=== PATIENT | female | born 1960 | race Hispanic/Latino ===

== ENCOUNTER → 2018-05-16 | Day surgery (SDC) | payer OTHER ==
[~2018-05-16] MED LIST: ALENDRONATE SOD70 MG PO; ASPIRIN81 MG PO; CALCIUM 600 +1 EAC2; CITALOPRAM HBR20 MG PO; CYCLOBENZAPRINE10 MG PO; GABAPENTIN300 MG PO; GLUCOSAMINE &1 EAC1 PO; KETAMINE HCL INJ 50 MG/ML 10 ML VIAL ONE; LIDOCAINE HCL 2% LOCAL INJ 5 ML SDV VIAL INJ ONE; MELOXICAM7.5 MG PO; MIDAZOLAM HCL 2 MG/2 ML VIAL ONE; PANTOPRAZOLE SO40 MG PO; PROPOFOL IV EMULSION 10 MG/ML 50 ML VIAL ONE; ULTRAM50 MG PO
--- OUTSIDE RECORDS SUMMARY | 2018-05-16 07:23 | XMS REPORT ---
Author Author [facility] Address Unknown Phone Unavailable Care Team Providers Care Area Director Name Role Phone SALBADOR ORNELAS Unavailable Unavailable Problems This patient has no known problems. Allergies, Adverse Reactions, Alerts This patient has no known allergies or adverse reactions. Medications This patient has no known medications. Results Test Description Test Time Test Comments Text Results Atomic Results Result Comments BONE DXA DUAL ENERGY [place] [address] Patient Name: SYLVIA OCONNOR MR #: [id number] : 1960 Age/Sex: 56/F Req #: [id number] [facility] Physician: Ordered by: SALBADOR ORNELAS MD Report #: [id number] [facility] Room/Bed: Procedure: [id number] DX/BONE DXA DUAL ENERGY Exam Date: Exam Time: REPORT STATUS: Signed EXAM: DXA BONE DENSITY INDICATIONS: Not provided. COMPARISON: None. FINDINGS: Proximal left femur bone mineral density (BMD) (g/cm2): 0.880 Femur T-score (standard deviation relative to young adult mean BMD): -0.6 Femur Z-score (standard deviation relative to age-matched control group): 0.3 Lumbar bone mineral density (BMD) (g/cm2): 1.045 Lumbar T-score (standard deviation relative to young adult mean BMD): 0.0 Lumbar Z-score (standard deviation relative to age-matched control group): 1.2 Change since prior exam (%): Femur: -3.1% Spine: 0.9% Change since oldest prior exam (%): Femur: 0.3% Spine: 3.0% CONCLUSION: 1. Bone mineral density in the left femur is classified as normal. Fracture risk is not increased. 2. Bone mineral density in the spine is classified as normal. Fracture risk is not increased. World Health Organization Classification: *The Z-score is provided for informational purposes. The T- score is preferable for clinical decisions. When comparing exams, a change of >4% is considered statistically significant. SUGGESTED RECOMMENDATIONS: Normal T Osteopenia: Consideration should be given to use of calcium supplementation, daily multiple vitamins and adequate exercise, as preventive measures against osteoporosis, if clinically indicated. Osteoporosis T Severe Osteoporosis: In addition to the above, consideration should be given to medical therapy against osteoporosis, if clinically indicated. Carmen Cooper D.O. Dictated by: Carmen Cooper D.O. on 07/12/2017 at 15:16 Electronically approved by: Carmen Cooper D.O. on 07/12/2017 at 15:16 Dictated By: CARMEN COOPER DO 1516 Transcribed By: JESUS MANUEL on 07/12/17 1516 COPY TO: SALBADOR ORNELAS MD MAMMOGRAPHY DIGITAL SCR [place] [address] Patient Name: SYLVIA OCONNOR MR #: [id number] : 1960 Age/Sex: 56/F Req #: [id number] Physician: Ordered by: SALBADOR ORNELAS MD Report #: [id number] Location: [facility] Room/Bed: Procedure: [id number] MG/MAMMOGRAPHY DIGITAL SCR BILAT Exam Date: 07/12/17 Exam Time: 1320 REPORT STATUS: Signed #[id number] - [id number] #BILATERAL DIGITAL SCREENING MAMMOGRAM WITH CAD: 07/12/2017 CLINICAL: Routine screening. Comparison is made to exams dated: 07/04/2015 mammogram, 06/29/2014 mammogram and 04/04/2013 mammogram - [facility]. Current study contains 4 films. The tissue of both breasts is heterogeneously dense. This may lower the sensitivity of mammography. Current study was also evaluated with a Computer Aided Detection (CAD) system. There are benign vascular calcifications and calcifications in both breasts. No significant masses, calcifications, or other findings are seen in either breast. There has been no significant interval change. IMPRESSION: BENIGN There is no mammographic evidence of malignancy. A 1 year screening mammogram is recommende d. The patient will be notified by letter of the results. Carmen mckeon/michael:07/28/2017 08:04:25 Audio Visual Technician: Mikki LOPEZ(R)(M), [facility] letter sent: Compared to Prior B9 Mammogram BI-RADS: 2 Benign Dictated By: CARMEN COOPER DO 0804 Transcribed By: MICHAEL on 07/28/17 0804 COPY TO: SALBADOR ORNELAS MD
[2018-05-16 11:10] VITALS: BP 141/75
--- NOTE | 2018-05-16 13:22 | Operative Report ---
DATE OF PROCEDURE: May 16, 2018 REFERRING PHYSICIAN: Dr. Salbador Pastrana. PROCEDURES PERFORMED: 1. Esophagogastroduodenoscopy with esophageal dilatation and biopsies. 2. Colonoscopy with polypectomy and biopsies. INDICATIONS FOR ESOPHAGOGASTRODUODENOSCOPY: Dysphagia, history of antral intestinal metaplasia. INDICATIONS FOR COLONOSCOPY: History of colon polyps. MEDICATION: Patient was done under MAC. Please see anesthesiologist's note. PROCEDURE: With patient in the left lateral decubitus position, the flexible fiberoptic Olympus gastroscope was introduced into the esophagus under direct visualization without any difficulty. There was some patchy erythema noted in the distal esophagus. A mild stricture was noted at the GE junction, and that was dilated to size 52-Anguillan Jackson. The scope was then advanced with ease into the stomach, and the mucosa overlying the antrum revealed some patchy erythema and low-grade edema, and biopsies were obtained and sent to stain for H. pylori. The mucosa overlying the body was somewhat atrophic, and biopsies were obtained to rule out atrophic gastritis. Pylorus was of normal contour and shape, was intubated with ease, and the scope was advanced all the way to the 2nd portion of the duodenum. The scope was withdrawn slowly. Mucosa overlying the proximal 2nd portion and the duodenal bulb appeared to be within normal limits. The scope was then withdrawn back into the stomach and retroflexed, and the mucosa overlying the fundus and the cardia appeared to be within normal limits. The scope was then straightened out. The stomach was decompressed. The scope was subsequently withdrawn. Patient tolerated the procedure well. IMPRESSION: 1. Distal esophagitis. 2. Esophagus dilated to a size 52-Anguillan Jackson. 3. Gastritis, antrum, biopsied. Biopsies sent to stain for H. pylori. 4. Rule out atrophic gastritis, body. PLAN: Follow up histology. Continue Protonix 40 mg 1 p.o. q.a.m. a.c. Patient was then turned around and after adequate lubrication of the anal canal, a flexible fiberoptic Olympus colonoscope was inserted into the rectum with ease and advanced all the way to the cecum. A minute polyp was hot biopsied from the cecum. The ileocecal valve was intubated, and the scope was advanced into the terminal ileum. A focal inflammatory area was noted, and that was biopsied. The scope was then withdrawn back into the colon. It was then withdrawn slowly, and the mucosa overlying the ascending appeared to be within normal limits other than for a small single diverticulum. The transverse, descending, sigmoid and rectum appeared to be within normal limits. The scope was then retroflexed into the distal rectum and small internal hemorrhoids were noted, none of which was actively bleeding. The scope was then straightened out. It was subsequently withdrawn. Patient tolerated the procedure well. IMPRESSION: 1. Cecal polyp hot biopsied. 2. Single diverticulum, ascending colon. 3. Internal hemorrhoids, none actively bleeding. PLAN: Follow up histology. Patient might benefit from a followup colonoscopy in 3 to 5 years. Initiate high-fiber low-fat diet. Job#: [id number] EV cc:SALBADOR PASTRANA MD
== END | disposition home or self-care (01) ==
LOC: OR 07:21
PROVIDERS: ATTEND Internal Medicine Gastroenterology
DX: K21.0 Gastro-esophageal reflux disease with esophagitis (principal); K22.2 Esophageal obstruction; K29.40 Chronic atrophic gastritis without bleeding; K31.9 Disease of stomach and duodenum, unspecified; Z12.11 Encounter for screening for malignant neoplasm of colon; K63.5 Polyp of colon; K57.30 Diverticulosis of large intestine without perforation or abscess without bleeding; K64.8 Other hemorrhoids; F41.8 Other specified anxiety disorders; F31.9 Bipolar disorder, unspecified; M19.90 Unspecified osteoarthritis, unspecified site; M54.9 Dorsalgia, unspecified; Z79.82 Long term (current) use of aspirin; Z79.891 Long term (current) use of opiate analgesic
CPT/HCPCS: 43239; 43450; 45380; 45384; 93005; J2001; J2250; 45378

== ENCOUNTER 2018-05-28 03:18 | Emergency (ER) | payer OTHER ==
[~2018-05-28] VITALS: Ht 157.5 cm; Wt 79.8 kg
[~2018-05-28 03:18] MED LIST changes: -KETAMINE HCL INJ 50 MG/ML 10 ML VIAL ONE; -LIDOCAINE HCL 2% LOCAL INJ 5 ML SDV VIAL INJ ONE; -MIDAZOLAM HCL 2 MG/2 ML VIAL ONE; -PROPOFOL IV EMULSION 10 MG/ML 50 ML VIAL ONE
== END 2018-05-28 04:05 | disposition home or self-care (01) ==
LOC: ER 03:18
DX: M79.672 Pain in left foot (principal); M79.671 Pain in right foot; M72.2 Plantar fascial fibromatosis
CPT/HCPCS: 99282

== ENCOUNTER → 2019-10-09 | Outpatient (CLI) | payer OTHER ==
--- NOTE | 2019-10-09 14:12 | Diagnostic Imaging Report ---
EXAMINATION: HAND 3+ VIEWS LEFT INDICATION: Finger pain COMPARISON: None FINDINGS: No acute fracture or dislocation. Alignment appears anatomic. The soft tissues appear radiographically unremarkable. No substantial degenerative changes. IMPRESSION: No acute osseous injury. Signed by: Kyrie Suresh MD on 10/09/2019 2:09 PM
--- NOTE | 2019-10-10 09:44 | Diagnostic Imaging Report ---
EXAMINATION: Bone mineral density study. COMPARISON: Bone mineral density studies 07/12/2017 and 06/29/2014. HISTORY: Osteoporosis DISCUSSION: Evaluation of the left hip and lumbar spine was performed utilizing a DEXA Hologic bone densitometer. The study is technically adequate. The left hip total bone mineral density is 0.874 gm/cm2, the T-score is -0.7, and the Z-score is 0.3. The left hip femoral neck bone mineral density is 0.764 gm/cm2, the T-score is -0.9, and the Z-score is 0.3. The lumbar spine total bone mineral density is 1.053 gm/cm2, the T-score is 0.1, and the Z-score is 1.5. IMPRESSION: 1. WHO classification of normal bone mineral density for the left hip with no increased risk of fracture. Interval BMD change of +1.9% when compared to baseline and -0.7% when compared to previous 2. WHO classification of normal bone mineral density for the lumbar spine with no increased risk of fracture. Interval BMD change of +10.9% when compared to baseline and +0.8% when compared to previous The patient's fracture risk is compared to an age-matched control. Medical evaluation for secondary causes of low bone bone mineral density may be appropriate. Correlate clinically for the necessity and timing of the next bone mineral density study. National Osteoporosis Foundation recommendations: Initiate therapy to reduce fracture risk in postmenopausal women with -BMD t-scores below -2.0 by central DXA with no risk factors -BMD t-scores below -1.5 by central DXA with one or more risk factors (first deg relative with hip fracture, prior personal fracture, low body weight, smoking) -A prior vertebral or hip fracture AACE (Clinical Endocrinology) recommends treating the following: Postmenopausal women who have osteoporosis as diagnosed by fragility fractures or t scores -2.5 or below Postmenopausal women who have risk factors (including fh of hip fracture, low body weight, smoking, risk of falling, high bone turnover, advancing age) and borderline low BMD T scores of -1.5 or below Adequate intake of calcium (at least 1200mg/day) and vitamin D (400-800 IU/day). Regular weight bearing and muscle - strengthening exercises Avoid smoking and excessive alcohol Signed by: Dr. Jericho Plaza M.D. on 10/10/2019 9:40 AM
== END ==
LOC: DX 11:36
PROVIDERS: ATTEND Family Medicine
DX: M81.0 Age-related osteoporosis without current pathological fracture (principal); M79.645 Pain in left finger(s)
CPT/HCPCS: 77080

== ENCOUNTER 2019-10-22 03:23 | Emergency (ER) | payer OTHER ==
[~2019-10-22] VITALS: Ht 162.6 cm; Wt 77.6 kg
[2019-10-22] MEDS ORDERED: HYDROCODONE/APAP 5MG-325MG TAB PO ONE (03:45)
--- NOTE | 2019-10-22 05:25 | Diagnostic Imaging Report ---
X-ray right fifth toe 2 views HISTORY: Pain. COMPARISON: None available. FINDINGS: Bones: No acute displaced fracture. Osseous alignment is within normal limits. Joints: The joint spaces are well-maintained. Soft tissues: The soft tissues appear unremarkable. IMPRESSION: No acute radiographic osseous abnormality. Signed by: Jimbo Vasquez DO on 10/22/2019 5:21 AM
== END 2019-10-22 04:30 | disposition home or self-care (01) ==
LOC: ER 03:23
DX: S90.121A Contusion of right lesser toe(s) without damage to nail, initial encounter (principal); S97.121A Crushing injury of right lesser toe(s), initial encounter; W50.0XXA Accidental hit or strike by another person, initial encounter; Y92.019 Unspecified place in single-family (private) house as the place of occurrence of the external cause; Z82.49 Family history of ischemic heart disease and other diseases of the circulatory system
CPT/HCPCS: 99283

== ENCOUNTER 2023-01-03 01:40 | Emergency (ER) | payer BC ==
[~2023-01-03] VITALS: Ht 162.6 cm; Wt 77.6 kg
[2023-01-03] MEDS ORDERED: ONDANSETRON HCL INJ 2MG/ML 2ML 2 MG/ML VIAL IV STA (01:42)
[2023-01-03] MEDS ORDERED: DICYCLOMINE HCL 20 MG/2 ML VIAL IM ONE (01:45)
[2023-01-03] MEDS ORDERED: Morphine 2mg Syringe 2 MG/ML SYR IV ONE (01:45)
[2023-01-03] MEDS ORDERED: SODIUM CHLORIDE 0.9% 1000ML 1,000 ML ONE (01:55)
[2023-01-03] MEDS ORDERED: SODIUM CHLORIDE 0.9% 1000ML 1,000 ML IV ONE (02:15)
[2023-01-03 02:18] LABS: BASOPHILS % 0.2 % (0.0-1.0); EOSINOPHILS # (AUTO) 0.1 (0.0-0.4); EOSINOPHILS % 0.9 % (0.0-6.0); HEMOGLOBIN 12.1 g/dL (12.0-16.0); LYMPHOCYTES # (AUTO) 1.6 (1.0-3.2); MEAN CORPUSCULAR HEMOGLOBIN 28.1 pg (28-32); MEAN CORPUSCULAR HGB CONC 32.7 g/dL (31-35); MONOCYTES # (AUTO) 0.4 (0.2-0.8); MONOCYTES % 4.2 % (4.4-11.3); NEUTROPHILS # (AUTO) 6.8 (2.1-6.9); NEUTROPHILS % 76.5 % (38.7-80.0); PLATELET COUNT 244 x10e3/uL (140-360); RED CELL DISTRIBUTION WIDTH 12.7 % (11.7-14.4)
[2023-01-03 02:28] LABS: LIPASE 35 U/L (8-78)
[2023-01-03 02:30] LABS: ALBUMIN/GLOBULIN RATIO 1.1 (0.8-2.0); ANION GAP 14.1 mmol/L (8-16); CREATININE, SERUM 0.81 mg/dL (0.57-1.11); POTASSIUM 4.1 mmol/L (3.5-5.1)
[2023-01-03 02:39] LABS: CLARITY,URINE CLEAR (CLEAR); COLOR,URINE YELLOW (YELLOW); KETONES,URINE TRACE (NEGATIVE); LEUKOCYTE ESTERASE ,URINE NEGATIVE (NEGATIVE); NITRITE,URINE NEGATIVE (NEGATIVE); PROTEIN,URINE DIPSTICK NEGATIVE (NEGATIVE); URINE UROBILINOGEN 1 mg/dL (0.2 - 1)
[2023-01-03 02:56] LABS: BACTERIA,URINE MANY /HPF; EPITHELIAL CELLS,URINE FEW /LPF; RBC,URINE 0-5 /HPF (0-5); WBC,URINE (MAN) 0-5 /HPF (0-5)
[2023-01-03 02:57] LABS: AMORPHOUS SEDIMENT,URINE MANY (FEW)
[2023-01-03] MEDS ORDERED: KETOROLAC TROMETHAMINE 30 MG/ML VIAL IV ONE (03:45)
[2023-01-03] MEDS ORDERED: ONDANSETRON ODT4 MG PO (04:50)
[2023-01-03] MEDS ORDERED: DICYCLOMINE HCL20 MG PO (04:50)
[2023-01-03 05:07] VITALS: BP 160/73; PULSE 72; RESP 14; TEMP 98.2; O2SAT 98
== END 2023-01-03 05:16 | disposition home or self-care (01) ==
LOC: ER 01:45
DX: R10.13 Epigastric pain (principal); R10.11 Right upper quadrant pain; K80.20 Calculus of gallbladder without cholecystitis without obstruction; R11.2 Nausea with vomiting, unspecified; M81.8 Other osteoporosis without current pathological fracture
CPT/HCPCS: 36415; 71045; 76705; 80053; 81001; 83690; 84484; 85025; 93005; 99284; C9113; J0500; J1885; J2270; J2405; J7030

== ENCOUNTER 2023-01-04 16:38 | Inpatient (IN) | payer BC ==
[~2023-01-04] VITALS: Ht 162.6 cm; Wt 77.6 kg
[~2023-01-04 16:38] MED LIST changes: +DICYCLOMINE HCL20 MG PO; +ONDANSETRON ODT4 MG PO
[2023-01-04] MEDS ORDERED: SODIUM CHLORIDE 0.9% 1000ML 1,000 ML IV SCH (17:00)
[2023-01-04] MEDS ORDERED: CEFTRIAXONE 1 GM VIAL ONE (17:04)
[2023-01-04 17:11] LABS: BASOPHILS % 0.2 % (0.0-1.0); EOSINOPHILS % 0.1 % (0.0-6.0); HEMATOCRIT 39.7 % (34.2-44.1); HEMOGLOBIN 13.2 g/dL (12.0-16.0); LYMPHOCYTES # (AUTO) 1.1 (1.0-3.2); LYMPHOCYTES % 6.4 % (18.0-39.1); MEAN CORPUSCULAR HEMOGLOBIN 28.7 pg (28-32); MEAN CORPUSCULAR HGB CONC 33.2 g/dL (31-35); MEAN CORPUSCULAR VOLUME 86.3 fL (81-99); MONOCYTES % 5.6 % (4.4-11.3); NEUTROPHILS # (AUTO) 14.9 (2.1-6.9); NEUTROPHILS % 87.2 % (38.7-80.0); PLATELET COUNT 231 x10e3/uL (140-360); RED CELL DISTRIBUTION WIDTH 13.1 % (11.7-14.4)
[2023-01-04] MEDS ORDERED: ONDANSETRON HCL INJ 2MG/ML 2ML 2 MG/ML VIAL IV STA (17:13)
[2023-01-04] MEDS ORDERED: Morphine 4mg INJECTION 4 MG/ML INJ IV ONE (17:15)
[2023-01-04 17:28] LABS: ALBUMIN 3.5 g/dL (3.5-5.0); ALBUMIN/GLOBULIN RATIO 0.8 (0.8-2.0); CREATININE, SERUM 0.88 mg/dL (0.57-1.11)
[2023-01-04] MEDS: METRONIDAZOLE 750MG/NS 150ML 150 ML IV SCH (17:31)
[2023-01-04] MEDS ORDERED: KETOROLAC TROMETHAMINE 30 MG/ML VIAL IV STA (17:44)
[2023-01-04] MEDS ORDERED: LACTATED RINGER'S 1,000 ML INJ ONE (18:00)
[2023-01-04 18:50] VITALS: PULSE 115; RESP 20; O2SAT 99
[2023-01-04] MEDS: ACETAMINOPHEN 1000 MG/100 ML IV SCH (19:37)
[2023-01-04] MEDS: SODIUM CHLORIDE 0.9% 1000ML 1,000 ML IV SCH (19:39)
[2023-01-04 22:25] VITALS: BP_SYST 97; PULSE 75; RESP 18; TEMP 98; O2SAT 93
[2023-01-04 22:27] VITALS: BP 97/48; PULSE 85; RESP 18; TEMP 98; O2SAT 93
[2023-01-04 23:16] VITALS: BP 97/48; PULSE 85; RESP 16; TEMP 98; O2SAT 93
[2023-01-04 23:19] VITALS: BP 97/48; PULSE 85; RESP 16; TEMP 98; O2SAT 93
[2023-01-05] MEDS: SODIUM CHLORIDE 0.9% 1000ML 1,000 ML IV SCH ×3 (01:25→17:07)
[2023-01-05] MEDS: ACETAMINOPHEN 1000 MG/100 ML IV SCH ×4 (05:45→17:08)
[2023-01-05 05:56] LABS: BASOPHILS # (AUTO) 0.1 (0.0-0.1); BASOPHILS % 0.5 % (0.0-1.0); EOSINOPHILS # (AUTO) 0.1 (0.0-0.4); EOSINOPHILS % 0.9 % (0.0-6.0); HEMATOCRIT 33.7 % (34.2-44.1); HEMOGLOBIN 10.7 g/dL (12.0-16.0); LYMPHOCYTES # (AUTO) 0.9 (1.0-3.2); LYMPHOCYTES % 6.6 % (18.0-39.1); MEAN CORPUSCULAR HEMOGLOBIN 28.8 pg (28-32); MEAN CORPUSCULAR HGB CONC 31.8 g/dL (31-35); MEAN CORPUSCULAR VOLUME 90.6 fL (81-99); MONOCYTES # (AUTO) 0.8 (0.2-0.8); NEUTROPHILS % 84.9 % (38.7-80.0); PLATELET COUNT 165 x10e3/uL (140-360); RED BLOOD COUNT 3.72 x10e6/uL (3.6-5.1)
[2023-01-05] MEDS: METRONIDAZOLE 750MG/NS 150ML 150 ML IV SCH ×2 (06:00→12:18)
[2023-01-05 06:26] LABS: ANION GAP 10.2 mmol/L (8-16); CREATININE, SERUM 0.81 mg/dL (0.57-1.11); POTASSIUM 4.2 mmol/L (3.5-5.1)
[2023-01-05 08:00] VITALS: BP 105/54; PULSE 82; RESP 19; TEMP 98.2; O2SAT 96
[2023-01-05 11:44] VITALS: BP 104/55; PULSE 78; RESP 19; TEMP 97.9; O2SAT 96
[2023-01-05 16:00] VITALS: BP 115/69; PULSE 85; RESP 21; TEMP 98; O2SAT 97
[2023-01-05] MEDS: Morphine 4mg INJECTION 4 MG/ML INJ IV PRN ×2 (17:14→21:56)
[2023-01-05 20:00] VITALS: BP 118/61; PULSE 97; RESP 18; TEMP 98; TEMP 98.6; O2SAT 94; O2SAT 97
[2023-01-05] MEDS: ONDANSETRON HCL INJ 2MG/ML 2ML 2 MG/ML VIAL IV PRN (21:56)
[2023-01-06] MEDS: METRONIDAZOLE 750MG/NS 150ML 150 ML IV SCH ×3 (00:03→23:59)
[2023-01-06] MEDS: SODIUM CHLORIDE 0.9% 1000ML 1,000 ML IV SCH ×3 (00:04→17:13)
[2023-01-06 04:00] VITALS: BP 146/69; PULSE 107; TEMP 98.7; O2SAT 96
[2023-01-06 08:31] VITALS: BP 142/72; PULSE 102; RESP 16; TEMP 99.8; O2SAT 94
[2023-01-06 08:36] VITALS: BP 142/72; PULSE 102; RESP 16; TEMP 99.8; O2SAT 94
[2023-01-06] MEDS ORDERED: BUPIVACAINE 0.25% 30ML SDV ONE (11:02)
[2023-01-06] MEDS ORDERED: ACETAMINOPHEN 1000 MG/100 ML 100 ML IV ONE (11:47)
[2023-01-06] MEDS ORDERED: DEXAMETHASONE SOD PHOS INJ 4 MG/ML SDV ONE (12:45)
[2023-01-06] MEDS ORDERED: SEVOFLURANE INHAL SOLN 250 ML PEN BTL ONE (12:45)
[2023-01-06] MEDS ORDERED: SUCCINYLCHOLINE CHLORIDE 20 MG/ML 10ML VIAL ONE (12:45)
[2023-01-06] MEDS ORDERED: NEOSTIGMINE 1 MG/ML 10ML VIAL ONE (12:45)
[2023-01-06] MEDS ORDERED: GLYCOPYRROLATE INJ 0.2 MG/ML VIAL ONE (12:45)
[2023-01-06] MEDS ORDERED: ONDANSETRON HCL INJ 2MG/ML 2ML 2 MG/ML VIAL ONE (12:45)
[2023-01-06] MEDS ORDERED: POVIDONE IODINE 0.05% 0.05 % ML PO ONE (12:45)
[2023-01-06] MEDS ORDERED: PROPOFOL IV EMULSION 10 MG/ML 20 ML VIAL ONE (12:45)
[2023-01-06] MEDS ORDERED: ROCURONIUM BROMIDE 10 MG/ML 5ML VIAL IV ONE (12:45)
[2023-01-06] MEDS ORDERED: LIDOCAINE HCL 2% LOCAL INJ 5 ML SDV VIAL INJ ONE (12:45)
[2023-01-06] MEDS ORDERED: HYDROCODONE/APAP 7.5MG-325MG 1 EA TAB PO PRN (13:00)
[2023-01-06] MEDS ORDERED: FENTANYL CITRATE/PF 100MCG/2 ML INJ ONE (13:09)
[2023-01-06] MEDS: FENTANYL CITRATE/PF 100MCG/2 ML INJ ONE ×2 (13:18→13:25)
[2023-01-06] MEDS ORDERED: ACETAMINOPHEN 1000 MG/100 ML IV PRN (15:00)
[2023-01-06] MEDS: HYDROMORPHONE 1MG/1ML INJ IV PRN ×2 (15:42→21:28)
[2023-01-06 20:00] VITALS: BP 129/56; PULSE 70; RESP 18; TEMP 98.2; O2SAT 94
[2023-01-06 21:00] VITALS: BP 129/56; PULSE 70; RESP 18; TEMP 98.2; O2SAT 94
[2023-01-07] VITALS (7 sets, daily range): BP systolic 136–150; BP diastolic 62–77; PULSE 72–90; RESP 17–21; TEMP 97.6–98.7; O2SAT 95–100
[2023-01-07] MEDS: SODIUM CHLORIDE 0.9% 1000ML 1,000 ML IV SCH ×3 (01:55→17:37)
[2023-01-07 05:58] LABS: BASOPHILS % 0.1 % (0.0-1.0); HEMATOCRIT 30.1 % (34.2-44.1); HEMOGLOBIN 9.9 g/dL (12.0-16.0); LYMPHOCYTES # (AUTO) 0.9 (1.0-3.2); MEAN CORPUSCULAR HEMOGLOBIN 28.4 pg (28-32); MEAN CORPUSCULAR HGB CONC 32.9 g/dL (31-35); MEAN CORPUSCULAR VOLUME 86.5 fL (81-99); MONOCYTES # (AUTO) 0.9 (0.2-0.8); MONOCYTES % 6.1 % (4.4-11.3); NEUTROPHILS # (AUTO) 12.4 (2.1-6.9); NEUTROPHILS % 86.7 % (38.7-80.0); PLATELET COUNT 253 x10e3/uL (140-360); RED BLOOD COUNT 3.48 x10e6/uL (3.6-5.1); RED CELL DISTRIBUTION WIDTH 13.6 % (11.7-14.4)
[2023-01-07 06:46] LABS: ALBUMIN 2.1 g/dL (3.5-5.0); ALBUMIN/GLOBULIN RATIO 0.5 (0.8-2.0); ANION GAP 13.8 mmol/L (8-16); CREATININE, SERUM 0.62 mg/dL (0.57-1.11); POTASSIUM 3.8 mmol/L (3.5-5.1)
[2023-01-07] MEDS: METRONIDAZOLE 750MG/NS 150ML 150 ML IV SCH ×2 (14:00→23:41)
[2023-01-07] MEDS ORDERED: HYDROMORPHONE 1MG/1ML INJ IV PRN (17:15)
[2023-01-07] MEDS: HYDROMORPHONE 1MG/1ML INJ IV PRN (17:38)
[2023-01-07] MEDS: ONDANSETRON HCL INJ 2MG/ML 2ML 2 MG/ML VIAL IV PRN (17:38)
[2023-01-08] VITALS (7 sets, daily range): BP systolic 127–148; BP diastolic 58–67; PULSE 66–80; RESP 18; TEMP 98–98.5; O2SAT 95–100
[2023-01-08] MEDS: SODIUM CHLORIDE 0.9% 1000ML 1,000 ML IV SCH ×3 (02:51→21:43)
[2023-01-08 06:12] LABS: BASOPHILS % 0.4 % (0.0-1.0); EOSINOPHILS # (AUTO) 0.1 (0.0-0.4); EOSINOPHILS % 1.6 % (0.0-6.0); HEMATOCRIT 29.3 % (34.2-44.1); HEMOGLOBIN 9.5 g/dL (12.0-16.0); LYMPHOCYTES # (AUTO) 1.7 (1.0-3.2); LYMPHOCYTES % 23.9 % (18.0-39.1); MEAN CORPUSCULAR HEMOGLOBIN 28.4 pg (28-32); MEAN CORPUSCULAR HGB CONC 32.4 g/dL (31-35); MEAN CORPUSCULAR VOLUME 87.7 fL (81-99); MONOCYTES # (AUTO) 0.7 (0.2-0.8); MONOCYTES % 9.9 % (4.4-11.3); NEUTROPHILS # (AUTO) 4.4 (2.1-6.9); NEUTROPHILS % 62.6 % (38.7-80.0); PLATELET COUNT 264 x10e3/uL (140-360); RED BLOOD COUNT 3.34 x10e6/uL (3.6-5.1); RED CELL DISTRIBUTION WIDTH 13.7 % (11.7-14.4)
[2023-01-08 06:47] LABS: ALBUMIN 2.2 g/dL (3.5-5.0); ALBUMIN/GLOBULIN RATIO 0.6 (0.8-2.0); ANION GAP 9.4 mmol/L (8-16); CALCIUM 7.9 mg/dL (8.4-10.2); CREATININE, SERUM 0.63 mg/dL (0.57-1.11); POTASSIUM 3.4 mmol/L (3.5-5.1)
[2023-01-08] MEDS ORDERED: POTASSIUM CHLORIDE 20 MEQ TAB CR PO ONE (08:00)
[2023-01-08] MEDS: METRONIDAZOLE 750MG/NS 150ML 150 ML IV SCH (14:47)
[2023-01-09] MEDS: METRONIDAZOLE 750MG/NS 150ML 150 ML IV SCH (00:36)
[2023-01-09 01:13] VITALS: BP 131/59; PULSE 75; RESP 18; TEMP 98; O2SAT 100
[2023-01-09 05:25] VITALS: BP 142/68; PULSE 64; RESP 18; TEMP 98.2; O2SAT 97
[2023-01-09 05:26] VITALS: BP_SYST 122; BP_SYST 142; BP_DIAS 64; BP_DIAS 68; PULSE 64; PULSE 74; RESP 16; RESP 18; TEMP 98.2; O2SAT 95; O2SAT 97
[2023-01-09 07:34] VITALS: BP 148/64; PULSE 66; RESP 19; TEMP 97.9; O2SAT 97
[2023-01-09 07:50] LABS: ALBUMIN 2.2 g/dL (3.5-5.0); ALBUMIN/GLOBULIN RATIO 0.6 (0.8-2.0); ANION GAP 11.3 mmol/L (8-16); CALCIUM 7.9 mg/dL (8.4-10.2); CREATININE, SERUM 0.57 mg/dL (0.57-1.11); POTASSIUM 3.3 mmol/L (3.5-5.1)
[2023-01-09] MEDS ORDERED: POTASSIUM CHLORIDE 20 MEQ TAB CR PO STA (08:42)
[2023-01-09 11:38] VITALS: BP 135/70; PULSE 72; RESP 19; TEMP 98.6; O2SAT 98
== END 2023-01-09 13:05 | disposition home or self-care (01) | DRG 418 ==
LOC: ER 16:43 → ERHOLD 17:44 → MED/SURG3 22:23
PROVIDERS: ADMIT Internal Medicine; ATTEND Internal Medicine
PROC: 0FT44ZZ Resection of Gallbladder, Percutaneous Endoscopic Approach (ICD-10-PCS; principal; 2023-01-06 11:07)
DX: K80.00 Calculus of gallbladder with acute cholecystitis without obstruction (principal); E87.1 Hypo-osmolality and hyponatremia; K82.A1 Gangrene of gallbladder in cholecystitis; K76.0 Fatty (change of) liver, not elsewhere classified; E80.6 Other disorders of bilirubin metabolism; D72.829 Elevated white blood cell count, unspecified; M19.90 Unspecified osteoarthritis, unspecified site; M81.0 Age-related osteoporosis without current pathological fracture; Z20.822 Contact with and (suspected) exposure to COVID-19
CPT/HCPCS: 0223U; 36415; 71045; 74181; 80048; 80053; 83605; 84484; 85025; 87040; 87086; 88304; 93005; 94799; 96361; 99284; C1766; J0330; J0696; J1100; J1170; J1885; J2001; J2270; J2405; J2543; J2710; J7030

== ENCOUNTER → 2023-06-25 | Outpatient (REF) | payer BC | LOC: DX 12:38 | PROVIDERS: ATTEND Physician Assistant | DX: Z13.820 Encounter for screening for osteoporosis (principal) | CPT/HCPCS: 77080 ==